=== PATIENT | female | born 2005 | race Caucasian/White ===

== ENCOUNTER 2024-03-20 06:34 | Emergency (ER) | payer OTHER ==
[~2024-03-20] VITALS: Ht 144.8 cm; Wt 63.5 kg
[~2024-03-20 06:34] MED LIST: ALBU90OI INH; ALBU90OI61 INH; AZIT100SU PO; IBUP100S PO; NYST100TC TOP; SULTRIEL PO
[2024-03-20] MEDS ORDERED: Robaxin750 MG PO (08:08)
[2024-03-20 08:30] VITALS: BP 12/68
== END 2024-03-20 08:33 | disposition home or self-care (01) ==
LOC: ER 06:34
DX: S16.1XXA Strain of muscle, fascia and tendon at neck level, initial encounter (principal); M62.838 Other muscle spasm; V47.5XXA Car driver injured in collision with fixed or stationary object in traffic accident, initial encounter; W22.11XA Striking against or struck by driver side automobile airbag, initial encounter; Z88.0 Allergy status to penicillin
CPT/HCPCS: 72040; 99284-25

== ENCOUNTER 2024-06-05 16:35 | Emergency (ER) | payer OTHER ==
[~2024-06-05] VITALS: Ht 147.3 cm; Wt 65.8 kg
[~2024-06-05 16:35] MED LIST changes: +Robaxin750 MG PO
[2024-06-05 17:13] VITALS: BP 134/78
[2024-06-05 18:03] LABS: Influenza A, PCR NEGATIVE (NEGATIVE); Influenza B, PCR NEGATIVE (NEGATIVE); Resp Syncytial Virus, PCR NEGATIVE (NEGATIVE); SARS-Cov-2 (COVID-19) PCR, MMC NEGATIVE (NEGATIVE)
== END 2024-06-05 19:05 | disposition other institution (70) ==
LOC: ER 16:35
PROVIDERS: Student in an Organized Health Care Education/Training Program
DX: J06.9 Acute upper respiratory infection, unspecified (principal); B34.9 Viral infection, unspecified; Z88.0 Allergy status to penicillin; Z91.048 Other nonmedicinal substance allergy status
CPT/HCPCS: 0241U; 99283